=== PATIENT | male | born 1985 | race Caucasian/White ===

== ENCOUNTER 2016-05-19 12:56 | Emergency (ER) | payer MEDICAID ==
[2016-05-19 13:20] VITALS: BP 149/99
[2016-05-19] MEDS ORDERED: ACETAMINOPHEN 500 MG TABLET PO ONE (15:03)
--- NOTE | 2016-05-19 16:35 | ERNOTE ---
Upper Extremity HPI - Narrative Date of Service: 05/19/16 - General Extremities Pain Location: elbow: right - no gross abnormality noted, thumb: right - no gross abnormality noted Time Seen by Provider: 05/19/16 14:57 Source: patient Exam Limitations: no limitations - Immun/Allergies/Home Medications Immunizations: IMMUNIZATION HX Immunizations Up to Date Yes History of Influenza Vaccine No Hx Pneumococcal Vaccination No Allergies/Adverse Reactions: Allergies Allergy/AdvReac Type Severity Reaction Status Date / Time No Known Allergies Allergy Verified 05/19/16 13:21 Home Medications: HOME MEDICATIONS ALPRAZolam [Xanax] 0.5 mg PO TID PRN 01/03/13 [Last Taken 08/13/13] Metoprolol Succinate [Toprol Xl] 50 mg PO DAILY 01/03/13 [Last Taken 08/13/13] - Pain Score Pain Score #1 Pain Score: 3 - History of Present Illness Narrative: This is a 31 year old male patient who presents to the ED with complaints of slipping and falling on the ice injuring his right thumb and right elbow 2 days ago. Patient states pain has become progressively worse and now has limited ROM to both right elbow and right thumb. Has not attempted anything for pain relief today. Date (Duration): 05/17/16 Occurred: other - Wednesday 05/17 Location of Incident: home Severity: mild Method of Injury: Reports: fell Reason for Fall: Reports: slipped Loss of Consciousness: Reports: no loss of consciousness Modifying Factors - (Improves): Reports: rest Modifying Factors - (Worsens): Reports: movement Associated Symptoms: Denies: tingling, weakness, numbness distally, loss of feeling Other Injuries: Reports: none Review of Systems - Review of Systems Constitutional: Present: no symptoms reported. Absent: recent illness, fever, chills EYE: Present: no symptoms reported ENT: Present: no symptoms reported Respiratory: Present: no symptoms reported. Absent: shortness of breath, cough Cardiology: Present: no symptoms reported. Absent: chest pain, palpitations, edema Gastrointestinal/Abdominal: Present: no symptoms reported. Absent: nausea, vomiting Genitourinary: Present: no symptoms reported Musculoskeletal: Present: no symptoms reported Skin: Present: no symptoms reported. Absent: rash, lesions Neurological: Present: no symptoms reported Endocrine: Present: no symptoms reported - Patient's Past Medical History Patient History - Medical: Seizures Patient History - Cancer: No Hx of Cancer Patient History - Surgical Procedures: No surgical history - Social History Living Situations: home Smoking Status: Current every day smoker Alcohol Use: occasionally Drug Use: other Physical Exam - Physical Exam General Appearance: Present: wd/wn, alert, no apparent distress, cheerful Eye Exam: Normal inspection: bilateral Ears, Nose, Throat: Present: hearing grossly normal Respiratory: Present: no respiratory distress, normal breath sounds, no accessory muscle use, chest nontender, lungs clear Cardiovascular/Chest: Present: regular rate, rhythm, no murmur, normal peripheral pulses Peripheral Pulses: N=norm/S=strong/W=weak/B=bound/A=absent: Radial (R): Strong Extremity Exam: Present: normal inspection, no edema, decreased range of motion. Absent: non-tender Neurological Exam: Present: alert, oriented, normal mood/affect, no motor/ sensory deficits Skin Exam: Present: normal color, warm/dry ED Progress - Vital Signs Patient's Vital Signs:: I have reviewed the patient's vital signs. Vital Signs: Vital Signs 05/19/16 13:17 Temperature 36.7 C Pulse Rate 91 Respiratory 16 Rate Blood Pressure 149/99 O2 Sat by Pulse 97 Oximetry - X-Ray X-Ray #1 X-Ray: wrist Interpretation: Reviewed by me X-ray Comments: Findings: Normal bony mineralization and alignment. No fracture or dislocation. No productive or erosive changes are seen. No lytic or blastic changes. No soft tissue abnormality. IMPRESSION: NO ACUTE OSSEOUS ABNORMALITY Electronically signed by Raúl Stoner M.D.. X-Ray #2 X-Ray: hand Interpretation: Reviewed by me X-ray Comments: Findings: Normal bony mineralization and alignment. Chronic fifth metacarpal fracture. No fracture or dislocation. No productive or erosive changes are seen. No lytic or blastic changes. No soft tissue abnormality. IMPRESSION: NO ACUTE OSSEOUS ABNORMALITY Electronically signed by Raúl Stoner M.D.. X-Ray #3 X-Ray: elbow Interpretation: Reviewed by me X-ray Comments: Findings: Normal bony mineralization and alignment. No fracture or dislocation. No productive or erosive changes are seen. No lytic or blastic changes. No soft tissue abnormality. IMPRESSION: NO ACUTE OSSEOUS ABNORMALITY Electronically signed by Raúl Stoner M.D.. - Progress/Reassessment Chief Complaint: Upper Extremity Injury/Problem Departure Clinical Impression: Elbow pain, right, Pain of right thumb - Departure Disposition: Against medical advice Condition: Good Instructions: Elbow Contusion, Thumb Sprain Referrals: Cecilia Amador MD [Primary Care Provider] -
== END 2016-05-19 17:09 | disposition left against medical advice (07) ==
LOC: ER 12:56
DX: M25.531 Pain in right wrist (principal); M79.641 Pain in right hand; F17.200 Nicotine dependence, unspecified, uncomplicated

== ENCOUNTER 2017-01-04 09:50 | Emergency (ER) | payer MEDICAID ==
--- NOTE | 2017-01-04 10:08 | ERNOTE ---
[facility] Date of Service: 01/04/17 Presenting Symptoms: other - Sore throat Time Seen by Provider: 01/04/17 10:06 Source: patient, RN notes reviewed Exam Limitations: no limitations - Immun/Allergies/Home Medications Immunizations: IMMUNIZATION HX Immunizations Up to Date Yes History of Influenza Vaccine No Hx Pneumococcal Vaccination No Allergies/Adverse Reactions: Allergies Allergy/AdvReac Type Severity Reaction Status Date / Time No Known Allergies Allergy Verified 01/04/17 09:56 Home Medications: HOME MEDICATIONS ALPRAZolam [Xanax] 0.5 mg PO TID PRN 01/03/13 [Last Taken 08/13/13] Metoprolol Succinate [Toprol Xl] 50 mg PO DAILY 01/03/13 [Last Taken 08/13/13] - History of Present Illness Narrative: 31 y/o male ambulatory to the ED with swelling in his throat and difficulty swallowing. He slept with the windows open and thinks maybe this was the cause. He denies any associated symptoms. He also denies any sick contacts. Date (Duration): 01/04/17 ENT Location: Present: throat Prearrival Treatment: Present: no prearrival treatment Prior Treament: Denies: recently seen, similar symptoms before Review of Systems - Review of Systems Constitutional: Absent: recent illness, fever, chills, malaise EYE: Present: no symptoms reported ENT: Present: throat swelling. Absent: ear pain, nose congestion, nasal drainage, sore throat Respiratory: Present: cough - Occasional, mild. Absent: shortness of breath, wheezing, stridor Cardiology: Absent: chest pain, syncope Gastrointestinal/Abdominal: Absent: nausea, abdominal pain Genitourinary: Present: no symptoms reported Musculoskeletal: Absent: muscle pain, neck pain Skin: Absent: rash, lesions Neurological: Absent: headache, dizziness/light-headedness Endocrine: Present: no symptoms reported Hematologic/Lymphatic: Present: no symptoms reported Psych: Absent: anxiety, emotional problems - Patient's Past Medical History Patient History - Medical: GERD, Seizures Patient History - Cardiac/Respiratory: Hypertension Patient History - Cancer: No Hx of Cancer Patient History - Surgical Procedures: No surgical history Patient History - Other: None - Social History Living Situations: home Abuse History: No History of abuse Psych History: Hx of Anxiety Smoking Status: Current every day smoker Cigarettes Packs Per Day: 0.5 Have you smoked in the past 12 months: Yes Alcohol Use: occasionally Drug Use: other - Immunizations Immunizations Up to Date: Yes Hx Pneumococcal Vaccination: No History of Influenza Vaccine: No Physical Exam - Physical Exam General Appearance: Present: wd/wn, alert, no apparent distress Head Exam: Present: normal inspection Eye Exam: Normal inspection: bilateral Ears, Nose, Throat: Present: pharyngeal erythema, other - Uvula inflammed/ edematous. Absent: abnormal TM (R), abnormal TM (L), nasal congestion, sinus pain/drainage, pharyngeal swelling, tonsillar exudate, tonsillar swelling, dry mucous membranes Neck: Present: normal inspection, nontender, supple. Absent: lymphadenopathy (R ), lymphadenopathy (L) Respiratory: Present: no respiratory distress, normal breath sounds, no accessory muscle use, lungs clear Cardiovascular/Chest: Present: regular rate, rhythm, no murmur Extremity Exam: Present: normal inspection, no edema Neurological Exam: Present: alert, oriented, normal mood/affect, no motor/ sensory deficits Skin Exam: Present: normal color, warm/dry ED Progress - Results and Orders Patient's Lab Results:: I have reviewed the patient's lab results. - Vital Signs Patient's Vital Signs:: I have reviewed the patient's vital signs. Vital Signs: Vital Signs 01/04/17 09:54 Temperature 36 C L Pulse Rate 86 Respiratory 14 Rate Blood Pressure 167/104 O2 Sat by Pulse 97 Oximetry - Progress/Reassessment Chief Complaint: Sore Throat Progress:: Unchanged Departure Clinical Impression: Acute viral pharyngitis - Departure Disposition: Home self-care Condition: Good Instructions: Pharyngitis, [id number] Additional Instructions: Drink LOTS of water Ibuprofen 600 mg (3 tablets) every 6 hours with food for inflammation Humidifier Return to the ER for worsening symptoms - difficulty breathing, inability to swallow, etc.
[2017-01-04 10:48] LABS: Hematocrit 44.3 % (42.0-52.0); Hemoglobin 16.3 gm/dL (13.5-18.0); Mean Cell Volume 84.4 fl (78-100); Mean Corpuscular Hgb Conc 36.8 g/dl (32-36); Mean Platelet Volume 10.5 fl (6.0-9.5); Neutrophil # 2.4 K/mm3 (1.3-6.0); Neutrophil % 47.3 % (42-75.0); Platelet Count 225 K/mm3 (150-450); Red Blood Count 5.25 M/mm3 (4.7-6.0); Red Cell Distribution Width 11.9 % (11.5-14.0)
[2017-01-04 11:05] LABS: BUN/Creatinine Ratio 5.4 (9.0-21.6); Bilirubin, Total 0.3 mg/dL (0.0-1.1); Ca. Corrected For Albumin 8.4 mg/dL (8.4-10.2); Calcium * 8.7 mg/dL (7.9-10.9); Total Protein 6.8 gm/dL (6.2-8.2)
[2017-01-04 11:11] VITALS: BP 142/99
[2017-01-04] MEDS ORDERED: DEXAMETHASONE SOD PHOSPHATE 10 MG/ML VIAL IM ONE (11:14)
[2017-01-04] MEDS ORDERED: DEXAMETHASONE SOD PHOSPHATE 10 MG/ML VIAL ONE (11:16)
== END 2017-01-04 11:23 | disposition home or self-care (01) ==
LOC: ER 09:50
DX: J02.8 Acute pharyngitis due to other specified organisms (principal); B97.89 Other viral agents as the cause of diseases classified elsewhere; I10 Essential (primary) hypertension

== ENCOUNTER 2017-01-21 15:15 | Emergency (ER) | payer MEDICAID ==
[2017-01-21 15:26] VITALS: BP 129/84
--- NOTE | 2017-01-21 15:28 | ERNOTE ---
Back Pain ER HPI Date of Service: 01/21/17 Presenting Symptoms: injury/pain to back Time Seen by Provider: 01/21/17 15:27 Source: patient, RN notes reviewed Exam Limitations: no limitations Immunizations: IMMUNIZATION HX Immunizations Up to Date Yes History of Influenza Vaccine No Hx Pneumococcal Vaccination No Allergies/Adverse Reactions: Allergies No Known Allergies Allergy (Verified 01/04/17 09:56) Home Medications: HOME MEDICATIONS ALPRAZolam [Xanax] 0.5 mg PO TID PRN 01/03/13 [Last Taken 08/13/13] Metoprolol Succinate [Toprol Xl] 50 mg PO DAILY 01/03/13 [Last Taken 08/13/13] Cyclobenzaprine HCl [Flexeril] 10 mg PO TID PRN #20 tab 01/21/17 [Last Taken Unknown] Ibuprofen [Motrin] 600 mg PO Q6H PRN #40 tab 01/21/17 [Last Taken Unknown] Omeprazole 20 mg PO DAILY 01/21/17 [Last Taken Unknown] Narrative: 31 year old male ambulatory to the ED for low back pain that was first noted when he woke up yesterday morning. His pain is in the midline lumbar region and does not radiate. He had problems with pain in the same region several years ago. He has not been taking anything for pain. He started a new job yesterday and was doing some heavy lifting, but was having pain before he went to work. Date (Duration): 01/20/17 Time (Timing): 04:00 Timing: Reports: constant Quality/Severity: Reports: severe, aching Location of pain: Reports: lower back, no radiation Activities at Onset: Reports: sleep Recent Injury?: Reports: no Possible Precipitating Factor: Reports: lifting Associated Symptoms: Denies: fever/chills, sweating, constipation/incontinence, nausea/vomiting, problems urinating, difficulty walking, lightheadedness, numbess/weakness in legs Prior Treament: Reports: recently seen, similar symptoms before Review of Systems - Review of Systems Constitutional: Present: recent illness. Absent: fever, chills EYE: Present: no symptoms reported ENT: Present: no symptoms reported Respiratory: Present: cough. Absent: shortness of breath Cardiology: Absent: chest pain, edema Gastrointestinal/Abdominal: Absent: nausea, vomiting, abdominal pain Genitourinary: Absent: dysuria, hematuria Musculoskeletal: Present: back pain. Absent: neck pain, joint pain Skin: Absent: rash, lesions, lumps Neurological: Present: tingling. Absent: weakness, numbness Endocrine: Present: no symptoms reported Hematologic/Lymphatic: Present: no symptoms reported Psych: Present: no symptoms reported - Patient's Past Medical History Patient History - Medical: ADHD, Anxiety, Depression, GERD, Seizures Patient History - Cardiac/Respiratory: Hypertension Patient History - Cancer: No Hx of Cancer Patient History - Surgical Procedures: Vasectomy Patient History - Other: None - Social History Living Situations: home Abuse History: No History of abuse Psych History: Hx of Anxiety, Hx of Depression Smoking Status: Current every day smoker Cigarettes Packs Per Day: 0.8 Have you smoked in the past 12 months: Yes Alcohol Use: occasionally Drug Use: other - Immunizations Immunizations Up to Date: Yes Hx Pneumococcal Vaccination: No History of Influenza Vaccine: No Physical Exam - Physical Exam General Appearance: Present: wd/wn, alert, other - Appears uncomfortable Head Exam: Present: normal inspection Neck: Present: normal inspection, nontender, supple, full range of motion Respiratory: Present: no respiratory distress, normal breath sounds, no accessory muscle use, lungs clear Cardiovascular/Chest: Present: regular rate, rhythm, no murmur, normal peripheral pulses Back Exam: Present: no CVA tenderness, vertebral tenderness - Lumbar region, decreased range of motion. Absent: muscle spasm Extremity Exam: Present: normal inspection, normal range of motion, no edema, other - Positive straight leg test at 30 degrees bilaterally Neurological Exam: Present: alert, oriented, normal mood/affect, no motor/ sensory deficits, other - Normal strength against resistance in lower extremities, dorsiflexes great toes bilaterally DTR: N=norm/NB=norm/brisk/A=abs/DD=dull/dimin/HC=hyperactive: Knee (R): Normal/ Brisk, Knee (L): Normal/Brisk Skin Exam: Present: normal color, warm/dry ED Progress - Vital Signs Patient's Vital Signs:: I have reviewed the patient's vital signs. Vital Signs: Vital Signs 01/21/17 15:19 Temperature 36.8 C Pulse Rate 79 Respiratory 16 Rate Blood Pressure 129/84 O2 Sat by Pulse 99 Oximetry - Progress/Reassessment Chief Complaint: Back Pain Progress:: Improved Departure Clinical Impression: Low back pain Qualifiers: Chronicity: acute Back pain laterality: bilateral Sciatica presence: without sciatica Qualified Code(s): M54.5 - Low back pain - Departure Disposition: Home Follow Up Needed Condition: Stable Instructions: Back Pain, Adult, Form - Excuse from Work, School, or Physical Activity Additional Instructions: Ice/heat to sore area Muscle relaxant will cause drowsiness Follow up with your doctor if pain persists into next week Referrals: Cecilia Amador MD [Primary Care Provider] - Prescriptions: Cyclobenzaprine HCl [Flexeril] 10 mg PO TID PRN #20 tab PRN Reason: MUSCLE SPASMS Ibuprofen [Motrin] 600 mg PO Q6H PRN #40 tab PRN Reason: Pain
[2017-01-21] MEDS ORDERED: KETOROLAC TROMETHAMINE 60 MG/2 ML VIAL IM ONE ×2 (15:36→16:01)
[2017-01-21] MEDS ORDERED: ORPHENADRINE CITRATE 30 MG/ML VIAL IM ONE (15:36)
[2017-01-21] MEDS ORDERED: ORPHENADRINE CITRATE 30 MG/ML VIAL ONE (16:01)
== END 2017-01-21 16:08 | disposition home or self-care (01) ==
LOC: ER 15:15
DX: M54.5 Low back pain (principal); F17.210 Nicotine dependence, cigarettes, uncomplicated; F41.9 Anxiety disorder, unspecified; K21.9 Gastro-esophageal reflux disease without esophagitis; I10 Essential (primary) hypertension

== ENCOUNTER 2017-02-27 15:42 | Emergency (ER) | payer MEDICAID ==
[2017-02-27 17:55] LABS: Hematocrit 45.1 % (42.0-52.0); Hemoglobin 16.4 gm/dL (13.5-18.0); Mean Cell Volume 85.1 fl (78-100); Mean Corpuscular Hemoglobin 30.9 pg (27-31); Mean Corpuscular Hgb Conc 36.4 g/dl (32-36); Mean Platelet Volume 9.8 fl (6.0-9.5); Neutrophil # 4.7 K/mm3 (1.3-6.0); Neutrophil % 56.2 % (42-75.0); Platelet Count 308 K/mm3 (150-450); Red Cell Distribution Width 11.7 % (11.5-14.0); White Blood Count 8.3 K/mm3 (4.0-10.5)
--- NOTE | 2017-02-27 17:58 | ERNOTE ---
Lower Extremity HPI - Narrative Date of Service: 02/27/17 - General Lower Extremities Pain: foot: right Time Seen by Provider: 02/27/17 17:38 Source: patient Exam Limitations: no limitations - Immun/Allergies/Home Medications Immunizations: IMMUNIZATION HX Immunizations Up to Date Yes History of Influenza Vaccine No Hx Pneumococcal Vaccination No Allergies/Adverse Reactions: Allergies Allergy/AdvReac Type Severity Reaction Status Date / Time No Known Allergies Allergy Verified 02/27/17 15:50 Home Medications: HOME MEDICATIONS ALPRAZolam [Xanax] 0.5 mg PO TID PRN 01/03/13 [Last Taken 08/13/13] Metoprolol Succinate [Toprol Xl] 50 mg PO DAILY 01/03/13 [Last Taken 08/13/13] Ibuprofen [Motrin] 600 mg PO Q6H PRN #40 tab 01/21/17 [Last Taken Unknown] Omeprazole 20 mg PO DAILY 01/21/17 [Last Taken Unknown] Allopurinol [Zyloprim] 100 mg PO DAILY #30 tablet 02/27/17 [Last Taken Unknown] - History of Present Illness Narrative: Pt. comes in with c/o RLQ pain and swelling for three days. Pt. recently had a gout flare a week ago and was on meds for five days but after the meds were done his symptoms returned. Pt. denies any SOB, CP, NVD fever, recent illness or injury. Pt. denies following up with his PCP since original onset. Review of Systems - Review of Systems Constitutional: Present: no symptoms reported. Absent: recent illness, fever, chills, weakness, fatigue, malaise EYE: Present: no symptoms reported ENT: Present: no symptoms reported Respiratory: Present: no symptoms reported. Absent: shortness of breath, cough , wheezing Cardiology: Present: no symptoms reported. Absent: chest pain, palpitations, edema Gastrointestinal/Abdominal: Present: no symptoms reported. Absent: nausea, vomiting, diarrhea, abdominal pain Genitourinary: Present: no symptoms reported Musculoskeletal: Present: joint pain - R foot. Absent: back pain Skin: Present: no symptoms reported Neurological: Present: no symptoms reported. Absent: headache, dizziness/light- headedness, numbness, tingling All Other Systems: All systems neg except as marked - Patient's Past Medical History Patient History - Medical: ADHD, Anxiety, Depression, GERD, Seizures Patient History - Cardiac/Respiratory: Hypertension Patient History - Cancer: No Hx of Cancer Patient History - Surgical Procedures: Vasectomy Patient History - Other: None - Social History Living Situations: home Abuse History: No History of abuse Psych History: Hx of Anxiety, Hx of Depression Alcohol Use: none Drug Use: none - Immunizations Immunizations Up to Date: Yes Hx Pneumococcal Vaccination: No History of Influenza Vaccine: No Physical Exam - Physical Exam General Appearance: Present: wd/wn, alert, no apparent distress Head Exam: Present: normal inspection, no evidence of injury Eye Exam: Normal inspection: bilateral, PERRL: bilateral, EOMI: bilateral Ears, Nose, Throat: Present: normal ENT inspection, normal pharynx Neck: Present: normal inspection, nontender. Absent: lymphadenopathy (R), lymphadenopathy (L) Respiratory: Present: no respiratory distress, normal breath sounds, no accessory muscle use, chest nontender, lungs clear Cardiovascular/Chest: Present: regular rate, rhythm, no murmur, normal peripheral pulses Back Exam: Present: normal inspection, normal range of motion, no CVA tenderness , no vertebral tenderness Extremity Exam: Present: joint redness - R first metacarpal, joint swelling - R foot and ankle Neurological Exam: Present: alert, oriented, normal mood/affect, no motor/ sensory deficits Skin Exam: Present: normal color, warm/dry. Absent: pallor, skin rash ED Progress - Results and Orders Patient's Lab Results:: I have reviewed the patient's lab results. - Vital Signs Patient's Vital Signs:: I have reviewed the patient's vital signs. Vital Signs: Vital Signs 02/27/17 15:46 Temperature 36.7 C Pulse Rate 81 Respiratory 12 Rate Blood Pressure 152/98 O2 Sat by Pulse 97 Oximetry - X-Ray X-Ray #1 X-Ray: foot Interpretation: Reviewed by me X-ray Comments: soft tissue swelling, no soft tissue gas and no osseous abnormality. - Progress/Reassessment Chief Complaint: Lower Extremity Pain/ Injury Progress:: Unchanged Departure Clinical Impression: Gout attack Qualifiers: Gout site: foot Gout etiology: unspecified cause Laterality: right Qualified Code(s): M10.9 - Gout, unspecified - Departure Disposition: Home self-care Condition: Good Instructions: Low-Purine Diet, Uric Acid Nephropathy, Gout, [id number] Additional Instructions: Please follow up with primary provider in 2-3 days. Referrals: Cecilia Amador MD [Primary Care Provider] - Prescriptions: Allopurinol [Zyloprim] 100 mg PO DAILY #30 tablet
[2017-02-27 18:08] LABS: ALT 47 U/L (19-67); AST 19 U/L (0-48); Albumin * 4.1 gm/dl (3.4-5.0); Alkaline Phosphatase * 55 U/L (50-170); Anion Gap 13.6 mmol/L (6.8-13.8); BUN/Creatinine Ratio 6.8 (9.0-21.6); Bilirubin, Total 0.3 mg/dL (0.0-1.1); Blood Urea Nitrogen 5 mg/dL (6-23); Ca. Corrected For Albumin 8.6 mg/dL (8.4-10.2); Carbon Dioxide 25.3 mmol/L (24-32.6); Chloride 104 mmol/L (97-106); Glucose * 82 mg/dL (70-110); Potassium 3.9 mmol/L (3.4-4.6); Sodium 139 mmol/L (132-142); Total Protein 7.5 gm/dL (6.2-8.2); Uric Acid 7.8 mg/dL (2.6-7.2)
[2017-02-27] MEDS ORDERED: METHYLPREDNISOLONE ACETATE 80 MG/ML VIAL IM ONE (18:45)
[2017-02-27] MEDS ORDERED: METHYLPREDNISOLONE SOD SUCC/PF 40 MG/ML VIAL ONE (18:52)
[2017-02-27] MEDS ORDERED: METHYLPREDNISOLONE ACETATE 80 MG/ML VIAL ONE (18:56)
[2017-02-27 19:01] VITALS: BP 150/101
== END 2017-02-27 19:21 | disposition home or self-care (01) ==
LOC: ER 15:42
DX: M10.9 Gout, unspecified (principal); K21.9 Gastro-esophageal reflux disease without esophagitis; F41.9 Anxiety disorder, unspecified